=== PATIENT | female | born 1970 | race Asian ===

== ENCOUNTER 2016-09-05 11:37 | Emergency (ER) | payer OTHER ==
[~2016-09-05] VITALS: Ht 162.6 cm; Wt 120.2 kg
== END 2016-09-05 14:11 | disposition home or self-care (01) ==
LOC: ED 11:37
DX: G62.89 Other specified polyneuropathies (principal)
CPT/HCPCS: 99282

== ENCOUNTER 2016-09-09 14:01 | Outpatient (CLI) | payer OTHER | END 2016-09-09 15:05 | disposition home or self-care (01) | LOC: LABW 14:01 | DX: M10.071 Idiopathic gout, right ankle and foot (principal) | CPT/HCPCS: 36415; 84550; 85651 ==

== ENCOUNTER 2017-09-09 11:33 | Outpatient (CLI) | payer OTHER | END 2017-09-09 19:46 | disposition home or self-care (01) | LOC: MAMMO 11:33 | DX: Z12.31 Encounter for screening mammogram for malignant neoplasm of breast (principal) ==